=== PATIENT | male | born 1935 | race Caucasian/White ===

== ENCOUNTER 2017-08-12 23:02 | Observation (INO) ==
[2017-08-14] MEDS ORDERED: DO NOT ADM ANY ANTICOAGULANT DRUGS OTHER PRN
[2017-08-14] MEDS ORDERED: Acetaminophen 325 MG Tablet PO PRN (00:01)
[2017-08-14 07:38] VITALS: RESP 20
--- NOTE | 2017-08-14 08:27 | P.PN ---
Subjective Interval history: Follow up pneumonia. Patient seen and examined, walk test done today, 97% RA no shortness of breath. No acute events overnight. Doing well. Will DC home. Follow up PCP. Physical Exam Vital signs: Vital Signs 08/14/17 00:00 08/14/17 07:37 Temperature 96.3 F L 96.8 F L Pulse Rate 60 67 Respiratory Rate 18 20 Blood Pressure 116/68 120/68 Pulse Oximetry 97 98 Intake & Output 08/13/17 08/14/17 08/14/17 18:59 06:59 18:59 Intake Total 240 / 240 Output Total 750 / 750 Balance -510 / -510 Weight 95.7 kg 95.4 kg Intake: Oral 240 / 240 Output: Urine 750 / 750 Narrative: GENERAL: Well-developed, well-nourished patient in [facility]. SKIN: Warm and dry. No rash. HEAD: Normocephalic. Atraumatic. EYES: Pupils equal and round. No scleral icterus. No injection or drainage. ENT: No nasal bleeding or discharge. Mucous membranes pink and moist. NECK: Supple. Trachea midline. CARDIOVASCULAR: Regular rate and rhythm. S1, S2 noted. No murmur appreciated. RESPIRATORY: No accessory muscle use. Clear to auscultation. Breath sounds equal bilaterally. GASTROINTESTINAL: Abdomen soft, non-tender, nondistended. Normoactive bowel sounds x4. MUSCULOSKELETAL: No obvious deformities. Extremities without clubbing, cyanosis , or edema. NEUROLOGICAL: Awake and alert. No obvious cranial nerve deficits. Motor grossly within normal limits. 5/5 muscle strength in bilateral upper and lower extremities. Normal speech. PSYCHIATRIC: Appropriate mood and affect; insight and judgment normal. Results - Labs CBC & Chem 7: 08/13/17 06:05 08/13/17 06:05 Labs: Laboratory Results - last 24 hr 08/12/17 08/12/17 08/12/17 21:15 21:15 21:15 WBC RBC Hgb Hct MCV MCH MCHC RDW Plt Count MPV Neut % (Auto) Lymph % (Auto) [place] % (Auto) Eos % (Auto) Baso % (Auto) Neut # (Auto) Lymph # (Auto) [place] # (Auto) Eos # (Auto) Baso # (Auto) CBC Comment PT 21.5 H INR 2.1 APTT 36.2 H Sodium 141 Potassium 3.9 Chloride 109 H Carbon Dioxide 25.9 Anion Gap 6 BUN 16 Creatinine 1.00 Estimated GFR 72 L Random Glucose 91 Calcium 8.9 Total Bilirubin 0.9 AST 19 ALT 16 Alkaline Phosphatase 99 Total Creatine Kinase 73 Troponin I LESS THAN 0.02 L B-Natriuretic Peptide 158 H Total Protein 7.1 Albumin 3.7 Lipase 118 TSH 3rd Generation 2.460 Urine Color Urine Turbidity Urine pH Ur Specific [place] Urine Protein Urine Glucose (UA) Urine Ketones Urine Occult Blood Urine Nitrite Urine Bilirubin Urine Urobilinogen Ur Leukocyte Esterase Urine WBC Ur Squamous Epith Cells Micro UA Comment 08/12/17 08/12/17 08/13/17 21:15 21:40 06:05 WBC 10.1 RBC 5.03 Hgb 15.7 Hct 45.8 MCV 91.2 MCH 31.2 MCHC 34.2 RDW 12.8 Plt Count 139 L MPV 10.7 Neut % (Auto) 75.3 H Lymph % (Auto) 11.7 [place] % (Auto) 6.0 Eos % (Auto) 4.5 H Baso % (Auto) 2.5 H Neut # (Auto) 7.5 Lymph # (Auto) 1.2 [place] # (Auto) 0.6 Eos # (Auto) 0.5 H Baso # (Auto) 0.3 H CBC Comment DIFF FINAL PT INR APTT Sodium 143 Potassium 4.1 Chloride 110 H Carbon Dioxide 26.7 Anion Gap 6 BUN 14 Creatinine 0.81 Estimated GFR 92 Random Glucose 85 Calcium 8.3 L Total Bilirubin 0.8 AST 17 ALT 16 Alkaline Phosphatase 92 Total Creatine Kinase Troponin I B-Natriuretic Peptide Total Protein 6.2 L D Albumin 3.2 L Lipase TSH 3rd Generation Urine Color YELLOW Urine Turbidity CLEAR Urine pH 7.0 Ur Specific [place] 1.015 Urine Protein TRACE Urine Glucose (UA) NEG Urine Ketones NEG Urine Occult Blood NEG Urine Nitrite NEG Urine Bilirubin NEG Urine Urobilinogen 0.2 Ur Leukocyte Esterase NEG Urine WBC 0-2 Ur Squamous Epith Cells 0-5 Micro UA Comment CULT NOT INDICATED 08/13/17 08/13/17 06:05 06:05 WBC 8.9 RBC 4.44 L Hgb 13.8 Hct 40.6 MCV 91.6 MCH 31.1 MCHC 34.0 RDW 12.7 Plt Count 132 L MPV 10.4 Neut % (Auto) 73.6 H Lymph % (Auto) 12.7 [place] % (Auto) 7.5 Eos % (Auto) 5.4 H Baso % (Auto) 0.8 Neut # (Auto) 6.5 Lymph # (Auto) 1.1 [place] # (Auto) 0.7 Eos # (Auto) 0.5 H Baso # (Auto) 0.1 CBC Comment DIFF FINAL PT 18.2 H INR 1.8 APTT Sodium Potassium Chloride Carbon Dioxide Anion Gap BUN Creatinine Estimated GFR Random Glucose Calcium Total Bilirubin AST ALT Alkaline Phosphatase Total Creatine Kinase Troponin I B-Natriuretic Peptide Total Protein Albumin Lipase TSH 3rd Generation Urine Color Urine Turbidity Urine pH Ur Specific [place] Urine Protein Urine Glucose (UA) Urine Ketones Urine Occult Blood Urine Nitrite Urine Bilirubin Urine Urobilinogen Ur Leukocyte Esterase Urine WBC Ur Squamous Epith Cells Micro UA Comment Assessment and Plan - Plan COPD With acute exacerbation Continue with pneumonia treatment. Change to p.o. antibiotics. Will order for steroid p.o. Pneumonia Right lower lobe Was on Rocephin and azithromycin. DC'd on antibiotics p.o. Past oxygen walk test. No need for home O2. Respiratory failure. Improved. Patient with acute hypoxemic respiratory failure, patient O2 on room air today 97%. Afib Patient on warfarin. INR mildly subtherapeutic, will order for 3 mg today. Patient encouraged follow-up PCP for monitoring. Continue with sotalol aspirin. DC home today. No PT or home oxygen needed. Heart healthy diet as tolerated. Prescriptions per DC orders. Follow-up PCP.
[2017-08-14] MEDS ORDERED: Bisacodyl 10 MG Supp RECTAL PRN (09:00)
[2017-08-14] MEDS ORDERED: Multivitamin/Minerals Therapeutic Tablet PO SCH (09:00)
[2017-08-14] MEDS ORDERED: Folic Acid 1 MG Tablet PO SCH (09:00)
[2017-08-14] MEDS ORDERED: Budesonide-Formoterol 160/4.5 MCG 6 GM Inhaler INH SCH (09:00)
[2017-08-14] MEDS ORDERED: guaiFENesin 600 MG ER Tablet PO SCH (09:00)
[2017-08-14] MEDS ORDERED: Finasteride 5 MG Tablet PO SCH (09:00)
[2017-08-14] MEDS ORDERED: Umeclindinium 62.5 MCG/Vilanterol 25 MCG Inhaler INH SCH (09:00)
[2017-08-14] MEDS ORDERED: Lisinopril 20 MG Tablet PO SCH (09:00)
[2017-08-14] MEDS ORDERED: Gabapentin 300 MG Capsule PO SCH (09:00)
[2017-08-14] MEDS ORDERED: Senna/Docusate Sodium 8.6/50 MG Tablet PO SCH (09:00)
[2017-08-14] MEDS ORDERED: amLODIPine 10 MG Tablet PO SCH (09:00)
[2017-08-14] MEDS ORDERED: ALPRAZolam 0.25 MG Tablet PO PRN (09:01)
[2017-08-14] MEDS ORDERED: Amoxicillin/Clavulanate 875/125 MG Tablet PO SCH (09:15)
[2017-08-14] MEDS ORDERED: MethylPREDNISolone Sod Succinate Inj 40 MG/ML Vial IV.PUSH SCH (10:00)
[2017-08-14 10:44] LABS: INR 1.7 Ratio; Prothrombin Time 16.8 sec (9.8-11.6)
[2017-08-14] MEDS ORDERED: predniSONE 20 MG Tablet PO SCH (11:00)
[2017-08-14 11:26] VITALS: BP 112/62; PULSE 62; TEMP 99.2; O2SAT 93
[2017-08-14] MEDS ORDERED: Azithromycin Inj 500 MG in Sodium Chlor 0.9% Inj 250 ML IV.SIG SCH (23:00)
== END 2017-08-14 14:37 | disposition home or self-care (01) ==
LOC: PH3 23:02 → PHICU 23:02 → PH3 08-13 13:57 → UNDODISOB 08-13 14:00
PROVIDERS: ADMIT Hospitalist; ATTEND Hospitalist